=== PATIENT | male | born 1950 | race Caucasian/White ===

== ENCOUNTER 2021-01-31 08:59 | Outpatient (CLI) | payer MEDICARE | END 2021-01-31 09:00 | disposition home or self-care (01) | LOC: CSHWCC 08:59 | PROVIDERS: ATTEND Nurse Practitioner Family | DX: S97.0 Crushing injury of ankle (principal); S91.002S Unspecified open wound, left ankle, sequela; E11.622 Type 2 diabetes mellitus with other skin ulcer; E11.40 Type 2 diabetes mellitus with diabetic neuropathy, unspecified; E11.65 Type 2 diabetes mellitus with hyperglycemia; E78.2 Mixed hyperlipidemia; I10 Essential (primary) hypertension; I25.84 Coronary atherosclerosis due to calcified coronary lesion; I87.2 Venous insufficiency (chronic) (peripheral); L76.32 Postprocedural hematoma of skin and subcutaneous tissue following other procedure; R60.0 Localized edema | CPT/HCPCS: 11042; 97139; 97605; G0463; 99203; 99213 ==

== ENCOUNTER 2021-02-13 14:19 | Outpatient (CLI) | payer MEDICARE | END 2021-02-13 14:20 | disposition home or self-care (01) | LOC: CSHWCC 14:19 | PROVIDERS: ATTEND Nurse Practitioner Family | DX: S97.0 Crushing injury of ankle (principal); S91.002S Unspecified open wound, left ankle, sequela; R60.0 Localized edema; E11.622 Type 2 diabetes mellitus with other skin ulcer; E11.40 Type 2 diabetes mellitus with diabetic neuropathy, unspecified; E11.65 Type 2 diabetes mellitus with hyperglycemia; E78.2 Mixed hyperlipidemia; I10 Essential (primary) hypertension; I25.84 Coronary atherosclerosis due to calcified coronary lesion; I87.2 Venous insufficiency (chronic) (peripheral); L76.32 Postprocedural hematoma of skin and subcutaneous tissue following other procedure | CPT/HCPCS: 29581; 97139; G0463; 99213 ==

== ENCOUNTER 2021-04-16 09:39 | Outpatient (CLI) | payer MEDICARE | END 2021-04-16 09:40 | disposition home or self-care (01) | LOC: CSHWCC 09:39 | PROVIDERS: ATTEND Nurse Practitioner Family | DX: E11.622 Type 2 diabetes mellitus with other skin ulcer (principal); I87.332 Chronic venous hypertension (idiopathic) with ulcer and inflammation of left lower extremity; L97.322 Non-pressure chronic ulcer of left ankle with fat layer exposed; E11.40 Type 2 diabetes mellitus with diabetic neuropathy, unspecified; E11.65 Type 2 diabetes mellitus with hyperglycemia; E78.2 Mixed hyperlipidemia; I25.84 Coronary atherosclerosis due to calcified coronary lesion; I87.2 Venous insufficiency (chronic) (peripheral); L76.32 Postprocedural hematoma of skin and subcutaneous tissue following other procedure; S91.002D Unspecified open wound, left ankle, subsequent encounter; S97.02XD Crushing injury of left ankle, subsequent encounter; R60.0 Localized edema ==

== ENCOUNTER 2021-04-23 09:40 | Outpatient (CLI) | payer MEDICARE | END 2021-04-23 09:41 | disposition home or self-care (01) | LOC: CSHWCC 09:40 | PROVIDERS: ATTEND Nurse Practitioner Family | DX: I87.332 Chronic venous hypertension (idiopathic) with ulcer and inflammation of left lower extremity (principal); I87.2 Venous insufficiency (chronic) (peripheral); E11.622 Type 2 diabetes mellitus with other skin ulcer; L97.322 Non-pressure chronic ulcer of left ankle with fat layer exposed; L76.32 Postprocedural hematoma of skin and subcutaneous tissue following other procedure; R60.0 Localized edema; I25.10 Atherosclerotic heart disease of native coronary artery without angina pectoris; I25.84 Coronary atherosclerosis due to calcified coronary lesion; E11.40 Type 2 diabetes mellitus with diabetic neuropathy, unspecified; E11.65 Type 2 diabetes mellitus with hyperglycemia; E78.2 Mixed hyperlipidemia; S97.0 Crushing injury of ankle; S91.002S Unspecified open wound, left ankle, sequela | CPT/HCPCS: 99212; G0463 ==

== ENCOUNTER 2021-05-14 10:09 | Outpatient (CLI) | payer MEDICARE | END 2021-05-14 10:10 | disposition home or self-care (01) | LOC: CSHWCC 10:09 | PROVIDERS: ATTEND Nurse Practitioner Family | DX: I87.332 Chronic venous hypertension (idiopathic) with ulcer and inflammation of left lower extremity (principal); I87.2 Venous insufficiency (chronic) (peripheral); E11.622 Type 2 diabetes mellitus with other skin ulcer; L97.322 Non-pressure chronic ulcer of left ankle with fat layer exposed; S97.02XD Crushing injury of left ankle, subsequent encounter; L76.32 Postprocedural hematoma of skin and subcutaneous tissue following other procedure; S91.002D Unspecified open wound, left ankle, subsequent encounter; R60.0 Localized edema; E11.40 Type 2 diabetes mellitus with diabetic neuropathy, unspecified; E11.65 Type 2 diabetes mellitus with hyperglycemia; I10 Essential (primary) hypertension; I25.10 Atherosclerotic heart disease of native coronary artery without angina pectoris; I25.84 Coronary atherosclerosis due to calcified coronary lesion; E78.2 Mixed hyperlipidemia ==

== ENCOUNTER 2021-05-29 14:25 | Outpatient (CLI) | payer MEDICARE | END 2021-05-29 14:26 | disposition home or self-care (01) | LOC: CSHWCC 14:25 | PROVIDERS: ATTEND Nurse Practitioner Family | DX: S91.002S Unspecified open wound, left ankle, sequela (principal); E11.40 Type 2 diabetes mellitus with diabetic neuropathy, unspecified; E11.65 Type 2 diabetes mellitus with hyperglycemia; E11.622 Type 2 diabetes mellitus with other skin ulcer; E78.2 Mixed hyperlipidemia; I10 Essential (primary) hypertension; I25.84 Coronary atherosclerosis due to calcified coronary lesion; I87.2 Venous insufficiency (chronic) (peripheral); L76.32 Postprocedural hematoma of skin and subcutaneous tissue following other procedure; L97.411 Non-pressure chronic ulcer of right heel and midfoot limited to breakdown of skin; S97.0 Crushing injury of ankle ==